=== PATIENT | female | born 1995 | race Two or more races ===

== ENCOUNTER 2020-05-29 03:25 | Emergency (ER) | payer OTHER ==
[~2020-05-29] VITALS: Ht 170.2 cm; Wt 54.4 kg
--- NOTE | 2020-05-29 04:01 | NUR ---
PATIENT CAME TO ER BED 12 C/O RIGHT LOWER PELVIC PAIN SINCE EARLIER TODAY. PATIENT STATES THAT SHE WAS AT WORK WHEN SHE NOTICED THAT HSE HAS A SHARP RIGHT LOWER PELVIC PAIN THAT OCCURRED DUE TO UNKNOWN CAUSE. PAIN IS AGGRAVATED WHEN SLEEPING ON RIGHT LATERAL SIDE. LAST MENSTRUAL PERIOD WAS ABOUT 3 WEEKS AGO. PATIENT STATES THAT SHE IS SEXUALLY ACTIVE. PATIENT IS NOT ACITVELY BLEEDING. PATIENT ISPATIENT IS AAOX.4 NO SOB. BREATHING EVENLY AND UNLABORED ON ROOM AIR. CONNECTED TO THE MONITOR.
--- NOTE | 2020-05-29 04:07 | NUR ---
[employer] HELPER AT BEDSIDE FOR BLOOD DRAW.
[2020-05-29 04:19] LABS: CREATININE 0.7 mg/dL (0.6-1.3); POTASSIUM 3.5 mmol/L (3.5-5.1)
[2020-05-29 04:25] LABS: ALBUMIN 4.1 g/dL (3.4-5.0); BILIRUBIN,DIRECT 0.2 mg/dL (0.0-0.2); BILIRUBIN,TOTAL 0.7 mg/dL (0.2-1.0); TOTAL PROTEIN, SERUM 7.4 g/dL (6.4-8.2)
[2020-05-29 04:33] LABS: BASOPHILS % (AUTO) 0.3 % (0.0-2.0); EOSINOPHILS % (AUTO) 0.3 % (0.0-6.0); HEMATOCRIT 36 % (33-45); LYMPHOCYTES # (AUTO) 2.9 /CMM (0.8-4.8); LYMPHOCYTES % (AUTO) 41.3 % (20.0-44.0); MEAN CORPUSCULAR HGB CONC 33 g/dl (31.0-36.0); MEAN CORPUSCULAR VOLUME 89 fL (82-100); MONOCYTES # (AUTO) 0.7 /CMM (0.1-1.30); MONOCYTES % (AUTO) 9.5 % (2.0-12.0); NEUTROPHILS # (AUTO) 3.5 /CMM (1.8-8.9); NEUTROPHILS % (AUTO) 48.6 % (43.0-81.0); PLATELET COUNT (AUTO) 258 /CMM (150-450); WHITE BLOOD COUNT (AUTO) 7.1 K/uL (4.3-11.0)
[2020-05-29 04:38] LABS: APPEARANCE,URINE CLEAR (CLEAR); BILIRUBIN,URINE NEGATIVE (NEGATIVE); BLOOD, URINE SMALL Ery/uL (NEGATIVE); COLOR,URINE YELLOW (YELLOW); KETONES,URINE NEGATIVE (NEGATIVE); LEUKOCYTE ESTERASE ,URINE NEGATIVE (NEGATIVE); NITRITE, URINE NEGATIVE (NEGATIVE); PROTEIN,URINE NEGATIVE (NEGATIVE); UGLUCOSE NEGATIVE (NEGATIVE); UROBILINOGEN,URINE 0.2 EU/dL (0.2)
[2020-05-29] MEDS ORDERED: CT SWABBABLE VALVE TRANS SET 1 EA INFUS.SET MC ONE (05:20)
[2020-05-29] MEDS ORDERED: IOHEXOL-300 100 ML VIAL IV ONE (05:20)
[2020-05-29] MEDS ORDERED: IV NS 0.9% 250 ML IV ONE (05:20)
--- NOTE | 2020-05-29 05:30 | NUR ---
patient taken to ct.
--- NOTE | 2020-05-29 06:09 | NUR ---
DR. PAUL AT BEDSIDE SPEAKING WITH PATIENT.
--- NOTE | 2020-05-29 06:28 | NUR ---
Patient discharged to home in stable condition. Written and verbal after care instructions given. Patient verbalizes understanding of instruction.
--- NOTE | 2020-05-29 06:28 | NUR ---
IV removed. Catheter intact and site benign. Pressure and 4x4 applied to site. No bleeding noted.
--- NOTE | 2020-05-29 06:28 | NUR ---
PRESCRIPTION PROVIDED TO PATIENT AND EXPLAINED.
[2020-05-29 06:31] VITALS: BP 116/79
== END 2020-05-29 06:31 | disposition home or self-care (01) ==
LOC: ER 03:28
DX: R10.31 Right lower quadrant pain (principal); K59.00 Constipation, unspecified
CPT/HCPCS: 36415; 74177; 80048; 80076; 81001; 83690; 84703; 85025; 99285; J7050; Q9967; 81000-TC